=== PATIENT | female | born 1975 | race Two or more races ===

== ENCOUNTER → 2016-07-22 | Day surgery (SDC) | payer BC ==
--- NOTE | 2016-07-23 10:18 | PATH ---
Surgical Pathology Report Patient Name: AARON LANGSTON [facility]. Rec. #: [id number] /Age/Gender: 1975 (Age: 41) / F Account: [id number] Location: [facility] Taken: 07/22/2016 Received: 07/22/2016 Reported: 07/23/2016 Physicians: Allan Bautista M.D. Specimen(s) Received A: RIGHT BREAST SPECIMEN WITH CALCIFICATIONS B: RIGHT BREAST SPECIMEN WITHOUT CALCIFICATIONS Clinical History None given Final Diagnosis A. RIGHT BREAST, WITH CALCIFICATION, STEREOTACTIC NEEDLE CORE BIOPSY: BENIGN BREAST TISSUE WITH FIBROCYSTIC CHANGES INCLUDING STROMAL FIBROSIS, DUCTAL DILATATION, AND CYSTIC APOCRINE METAPLASIA. MICROCALCIFICATIONS ARE IDENTIFIED WITHIN BENIGN DUCTAL STRUCTURES. B. RIGHT BREAST, WITHOUT CALCIFICATIONS, STEREOTACTIC NEEDLE CORE BIOPSY: BENIGN BREAST TISSUE WITH FIBROCYSTIC CHANGES INCLUDING STROMAL FIBROSIS AND DUCTAL DILATATION. Electronically Signed Cristian Balderrama M.D. Gross Description A. Received in formalin, labeled "right breast with calcification," is a 0.9 cm. in length by 0.4 cm. in diameter tamez-yellow, cylindrical portion of fibroadipose tissue which is submitted in toto in one cassette. B. Received in formalin, labeled "right breast without calcifications," are 6 tamez-yellow, cylindrical portions of fibroadipose tissue ranging from 0.4-2.0 cm. in length and averaging 0.3 cm. in diameter. The specimen is submitted in toto in one cassette. Time to formalin fixation: 4 minutes Total formalin fixation time: Approximately 6 hours. 07/22/201607/22/2016
== END | disposition home or self-care (01) ==
LOC: FMAMMOTONE 10:03
PROVIDERS: ATTEND Surgery Surgical Oncology
PROC: 0HBT3ZX Excision of Right Breast, Percutaneous Approach, Diagnostic (ICD-10-PCS; principal; 2016-07-22)
DX: D24.1 Benign neoplasm of right breast (principal); N60.11 Diffuse cystic mastopathy of right breast
CPT/HCPCS: 19081; 87899; 88305-TC; A4648